=== PATIENT | male | born 1965 | race Caucasian/White ===

== ENCOUNTER 2020-04-16 17:17 | Emergency (ER) | payer MEDICAID, SELFPAY ==
[~2020-04-16] VITALS: Ht 167.6 cm; Wt 86.2 kg
[2020-04-16 17:43] VITALS: BP_SYST 126
[2020-04-16 18:46] VITALS: BP_SYST 126
== END 2020-04-16 18:47 | disposition home or self-care (01) ==
LOC: SED 17:17
DX: U07.1 COVID-19 (principal); R50.9 Fever, unspecified; R05 Cough; R63.0 Anorexia; M79.18 Myalgia, other site
CPT/HCPCS: 71045; 93005; 99285; C9803; U0003